=== PATIENT | female | born 1960 | race Caucasian/White ===

== ENCOUNTER 2017-02-03 05:36 | Day surgery (SDC) | payer OTHER ==
[2017-02-02 13:46] LABS: HEMATOCRIT 42.8 % (36.0-48.0); HEMOGLOBIN 13.7 g/dL (12-16); MCH 31.6 pg (26.0-34.0); MCV 98.6 fL (80.0-100.0); MEAN PLATELET VOLUME 10.2 fL (7.4-10.4); RBC 4.34 10x6/uL (4.00-5.40)
[2017-02-02 13:58] LABS: CALC OSMOLALITY 281 mosm/kg (275-300); CALCIUM 8.9 mg/dL (8.5-10.1); CARBON DIOXIDE 29.3 mmol/L (21.0-32.0); CHLORIDE - SERUM 102 mmol/L (98-107); CREATININE - SERUM 0.8 mg/dL (0.6-1.3); POTASSIUM - SERUM 4.1 mmol/L (3.5-5.1); SODIUM 138 mmol/L (136-145); UREA NITROGEN 9 mg/dL (7-18); eGFR NON AFRICAN AMERICAN 79 mL/min (90-120)
[2017-02-02 13:59] LABS: APTT 31.3 SECONDS (22.8-39.4); INR 1.35 (0.85-1.17); PROTIME 16.5 SECONDS (11.6-15.0)
[2017-02-02 14:00] LABS: GLUCOSE 222 mg/dL (74-106)
[~2017-02-03 05:36] MED LIST: COUMADIN3 MG; CYCLOBENZAPRINE10 MG PO; EFFEXOR75 MG PO; GLUCOPHAGE1000 MG PO; GLUCOPHAGE850 MG PO; HYDROCODONE-APA1 TAB PO; JANUVIA50 MG PO; LANOXIN250 MCG PO; OMEPRAZOLE20 M1 PO; PERCOCET 10/3251 TA1 PO; PRAVACHOL20 MG PO; PRILOSEC20 MG PO; RYTHMOL225 MG PO; XARELTO20 MG PO; ZEBETA5 MG PO; ZYRTEC10 M1 PO; ZYRTEC10 MG PO
[2017-02-03] MEDS ORDERED: HYDROCODONE-APA1 TAB PO (08:34)
== END 2017-02-03 10:10 | disposition home or self-care (01) ==
LOC: D.OPS 05:36
PROVIDERS: Anesthesiology
DX: M65.4 Radial styloid tenosynovitis [de Quervain] (principal)

== ENCOUNTER → 2017-04-27 13:42 | Outpatient (CLI) | payer OTHER ==
[2017-02-03 07:05] VITALS: BMI 44.1
== END | disposition home or self-care (01) ==
LOC: D.MRI 13:42
DX: M54.12 Radiculopathy, cervical region (principal)

== ENCOUNTER 2017-09-08 05:18 | Day surgery (SDC) | payer OTHER ==
[2017-09-07 11:53] LABS: HEMATOCRIT 37.9 % (36.0-48.0); HEMOGLOBIN 11.7 g/dL (12-16); MCHC 30.9 g/dL (31.0-37.0); MCV 93.8 fL (80.0-100.0); MEAN PLATELET VOLUME 10.1 fL (7.4-10.4); RBC 4.04 10x6/uL (4.00-5.40); WBC 5.3 10x3/uL (4.8-10.8)
[2017-09-07 12:08] LABS: CALC OSMOLALITY 278 mosm/kg (275-300); CALCIUM 8.7 mg/dL (8.5-10.1); CARBON DIOXIDE 25.7 mmol/L (21.0-32.0); CHLORIDE - SERUM 101 mmol/L (98-107); CREATININE - SERUM 0.7 mg/dL (0.6-1.3); POTASSIUM - SERUM 3.9 mmol/L (3.5-5.1); SODIUM 135 mmol/L (136-145); UREA NITROGEN 6 mg/dL (7-18); eGFR NON AFRICAN AMERICAN > 90 mL/min (90-120)
[2017-09-07 12:12] LABS: GLUCOSE 298 mg/dL (74-106)
[~2017-09-08] VITALS: Ht 172.7 cm; Wt 131.5 kg
[~2017-09-08 05:18] MED LIST changes: +RYTHMOL SR325 MG PO; -RYTHMOL225 MG PO
[2017-09-08 05:57] VITALS: Ht 172.7 cm; Wt 131.5 kg
[2017-09-08] MEDS ORDERED: PERCOCET 5-3251 TAB PO (07:54)
[2017-09-08] MEDS ORDERED: DURICEF500 MG PO (08:02)
--- NOTE | 2017-09-08 08:08 | NUR ---
PRE OP O2 SAT 94%
--- NOTE | 2017-09-08 08:14 | NUR ---
DR ROWE CONSULTED ABOUT LOW O2 SAT AND ORDERED UPDRAFT IN RECOVERY
--- NOTE | 2017-09-08 08:23 | NUR ---
DR ROWE NOW AT BEDSIDE ASCULTATING THE PATIENT AND ASSESING THE BREATHING AND O2 SAT
--- NOTE | 2017-09-08 09:40 | NUR ---
IV DC WITH CATHER TIP INTACT
--- NOTE | 2017-09-08 14:59 | OP ---
PATIENT NAME: ALAYNA NIETO MEDICAL RECORD: [id number] :62 LOCATION:[facility] ADMISSION DATE: SURGEON: DEA PATIÑO DO DATE OF OPERATION: 09/08/2017 PROCEDURE PERFORMED: Left de Quervain's release. PREOPERATIVE DIAGNOSIS: Left de Quervain's tenosynovitis, also I believe as a radial styloid tenosynovitis. POSTOPERATIVE DIAGNOSIS: Left de Quervain's tenosynovitis, also I believe as a radial styloid tenosynovitis. INDICATIONS: Ms. Nieto is a 57-year-old right hand dominant female who presented to my office with left wrist pain. She had similar symptoms in the past on the right when she had tried injections and ended up getting a de Quervain's release on the right. She said that she wanted the same thing done on the left. She said that she tried injections in the past and it did not work. Once this was communicated with me, we decided to consent her for the surgery. She was informed of the risks and benefits. DESCRIPTION OF PROCEDURE: The patient was taken to the operative suite, laid in supine position and given 3 grams Ancef, intubated, given general anesthetic and then the left arm was prepped and draped in sterile fashion. Timeout was performed, everyone was in agreement of correct side, site and patient. Once this was done, a blue towel was used to wrap in the palm and an Esmarch was used to exsanguinate the left upper extremity, tourniquet was inflated to 250 mmHg for 11 minutes total. Once the tourniquet was inflated, incision was made just over the radial styloid and careful dissection was made down to the first dorsal compartment. When this was encountered, there was abundance of fluid in the compartment itself indicating a severe de Quervain's tenosynovitis. Partial synovectomy was done just proximal to the release site of the sheath. Once this was done, the sheath was encountered and it was divided on the dorsal side. The APL was completely released and a synovectomy was performed as well. The separate tendon sheath was then encountered of the EPB tendon and this was released as well. The EPB was released completely as well and any remaining synovitis was taken out over the tendons. The tendons were pulled up through the incision to ensure they glided easily. Once this was done, pressure was held on the wound. Tourniquet was let down and then 5mL of 0.5% Marcaine with epinephrine were injected into the site and the incision itself was then closed with 5-0 Monocryl in inverted interrupted fashion and Steri-Strips were placed over the incision site. Adaptic, 4 x 4s, Kerlix, and Coban was lightly wrapped over the incision. The patient was awakened and taken to recovery in stable condition. Tourniquet was let down. Blood loss was minimal. COMPLICATIONS: None. TRANSINT:[id number] Voice Confirmation ID: [id number] DOCUMENT ID: [id number] OPERATIVE REPORT [id number] ALAYNA NIETO MICHAEL D, DO at 1459 CC: [id number] DICTATION DATE: 09/08/17 0759 OFFICE CLERK: 09/08/17 1143 [facility] 09/08/[address] [address]
== END 2017-09-08 09:55 | disposition home or self-care (01) ==
LOC: D.OPS 05:18 → D.PAN 07:30 → D.OPS 07:30
PROVIDERS: Anesthesiology
DX: M65.4 Radial styloid tenosynovitis [de Quervain] (principal); Z87.891 Personal history of nicotine dependence; E11.9 Type 2 diabetes mellitus without complications; G47.30 Sleep apnea, unspecified; K21.9 Gastro-esophageal reflux disease without esophagitis; E66.9 Obesity, unspecified; Z01.812 Encounter for preprocedural laboratory examination

== ENCOUNTER → 2017-11-06 11:16 | Outpatient (CLI) | payer OTHER ==
[2017-09-08 05:57] VITALS: BMI 44.1
[~2017-11-06 11:16] MED LIST changes: +DURICEF500 MG PO; +PERCOCET 5-3251 TAB PO
[2017-11-06 18:04] LABS: BASOPHILS 0.2 % (0-2); EOSINOPHILS 1.5 % (0-7); HEMATOCRIT 36.9 % (36.0-48.0); HEMOGLOBIN 11.7 g/dL (12-16); IMMATURE GRANULOCYTES 0.2 % (0-5); LYMPHOCYTES 42.3 % (15-50); MCH 30.2 pg (26.0-34.0); MCHC 31.7 g/dL (31.0-37.0); MCV 95.1 fL (80.0-100.0); MEAN PLATELET VOLUME 10.5 fL (7.4-10.4); MONOCYTES 5.9 % (2-11); NEUTROPHILS 49.9 % (40-80); PLATELET COUNT 116 10x3/uL (130-400); RBC 3.88 10x6/uL (4.00-5.40); RDW 14.3 % (11.5-14.5); WBC 5.3 10x3/uL (4.8-10.8)
[2017-11-06 19:25] LABS: ERYTHROCYTE SEDIMENTATION RATE 30 mm/hr (0-30)
== END | disposition home or self-care (01) ==
LOC: D.LABREF 11:16
PROVIDERS: Orthopaedic Surgery
DX: M25.561 Pain in right knee (principal)

== ENCOUNTER → 2017-11-23 11:58 | Outpatient (CLI) | payer OTHER ==
[2017-09-08 05:57] VITALS: BMI 44.1
== END | disposition home or self-care (01) ==
LOC: D.NM 10:15
DX: M25.561 Pain in right knee (principal)

== ENCOUNTER 2018-01-17 05:00 | Day surgery (SDC) | payer OTHER ==
[2018-01-16 09:34] LABS: CALC OSMOLALITY 283 mosm/kg (275-300); CALCIUM 8.7 mg/dL (8.5-10.1); CARBON DIOXIDE 28.1 mmol/L (21.0-32.0); CHLORIDE - SERUM 102 mmol/L (98-107); CREATININE - SERUM 0.7 mg/dL (0.6-1.3); POTASSIUM - SERUM 4.5 mmol/L (3.5-5.1); SODIUM 139 mmol/L (136-145); UREA NITROGEN 9 mg/dL (7-18); eGFR NON AFRICAN AMERICAN > 90 mL/min (90-120)
[2018-01-16 09:35] LABS: GLUCOSE 217 mg/dL (74-106)
[2018-01-16 09:40] LABS: HEMATOCRIT 37.8 % (36.0-48.0); HEMOGLOBIN 11.9 g/dL (12-16); MCH 29.2 pg (26.0-34.0); MCHC 31.5 g/dL (31.0-37.0); MCV 92.6 fL (80.0-100.0); MEAN PLATELET VOLUME 9.6 fL (7.4-10.4); RBC 4.08 10x6/uL (4.00-5.40); RDW 13.3 % (11.5-14.5); WBC 6.2 10x3/uL (4.8-10.8)
[~2018-01-17] VITALS: Ht 175.3 cm; Wt 122.5 kg
--- NOTE | ~2018-01-17 | OP ---
PATIENT NAME: ALAYNA BUENO MEDICAL RECORD: [id number] :62 [facility] DATE: SURGEON: HEIDI MANRIQUEZ DPM DATE OF OPERATION: 01/17/2018 PREOPERATIVE DIAGNOSES: 1. Posterior calcaneal spur, right foot with intratendinous calcifications. 2. Disruption of the Achilles tendon at its insertion. POSTOPERATIVE DIAGNOSES: 1. Posterior calcaneal spur, right foot with intratendinous calcifications. 2. Disruption of the Achilles tendon at its insertion. PROCEDURES: 1. Gastroc recession, right leg. 2. Calcaneal spur removal, right foot with resection of intratendinous calcifications. 3. Achilles tendon repair, right foot. ANESTHESIA: Preoperative popliteal block per the anesthesia department. HEMOSTASIS: Right thigh tourniquet at 350 mmHg. PREOPERATIVE DETAILS: The patient was taken to the operating room and following induction of general anesthesia, was placed on the operating table in a prone position. The right extremity was then prepped and draped in usual aseptic technique followed by exsanguination of extremity and inflation of tourniquet. PROCEDURE #1: Gastroc recession, right leg: A 15-blade was used to create a 4-cm linear incision over the posterior aspect of the right leg overlying the gastroc aponeurosis. The incision was deepened down through subcutaneous tissue being sure to avoid the sural nerve and vein. The dissection was carried down to the peritenon, where a linear incision was made in the peritenon and it was freed from posterior aspect of the aponeurosis. A 15 blade was used with the foot in dorsiflexion to make a cut through the aponeurosis allowing adequate dorsiflexion of the ankle. The wound was flushed and the skin was closed with skin chelly. PROCEDURE #2: Calcaneal spur resection, right foot with removal of intratendinous calcifications: Incision was made over the posterior medial aspect of the right heel extending down to the peritenon. Once the peritenon was visualized, it was incised freeing the Achilles tendon from the peritenon, exposing the insertion. At this time, the Achilles tendon was noted to be disrupted due to the fact that there was significant intratendinous calcifications and spurring in the posterior heel. A 15-blade was used to free the Achilles tendon. At this time, intratendinous calcifications of the Achilles tendons, which were extensive, approximately 2 cm in length up the Achilles tendon, they were resected sharply with a scalpel and dissected out measuring approximately 2 cm x 2 cm. A sagittal saw was then used to resect the spurring on the posterior aspect of the calcaneus. All rough areas were smoothed with a bone rasp. Wound was flushed. PROCEDURE #3: Achilles tendon repair, right foot: Utilizing the suture bridge technique, 4 small drill holes were made with tendon anchors placed in the calcaneus with FiberWire coming up through the anchors and securing the Achilles OPERATIVE REPORT [id number] ALAYNA BUENO L tendon down to the calcaneus in a very rigid fixation technique. Following the fixation, the ankle was placed in dorsiflexion noting excellent rigid internal fixation of the Achilles tendon. The wound was flushed. The peritenon and deep tissue reapproximated with 2-0 Vicryl followed by closure of the subcutaneous tissue with 4-0 Rapide and the skin was closed with 4-0 Rapide in a subcuticular technique, followed by Dermabond, Adaptic, 4 x 4, and Conform were used to dress the wounds, followed by application of a modified Amanda compression dressing. Tourniquet was deflated. POSTOPERATIVE DETAILS: The patient tolerated the procedures well and left the OR with vital signs stable and vascular status at preoperative levels. The patient was transported to recovery per anesthesia in stable condition. TRANSINT:[id number] Voice Confirmation ID: [id number] DOCUMENT ID: [id number] HEIDI MANRIQUEZ DPM at 0926 CC: [id number] DICTATION DATE: 01/17/18 0842 FINANCIAL ACCOUNTING ANALYST: 01/17/[address] [facility] [place], [place] 01/17/18 [facility] [address] [id number]
[~2018-01-17 05:00] MED LIST changes: +EFFEXOR XR75 MG PO
[2018-01-17] MEDS ORDERED: XARELTO20 MG PO (05:18)
[2018-01-17 05:36] VITALS: BP 114/67; Ht 175.3 cm; Wt 122.5 kg
== END 2018-01-17 11:15 | disposition home or self-care (01) ==
LOC: D.OPS 05:00 → D.PAN 07:00 → D.OPS 07:00
PROVIDERS: Anesthesiology
DX: M77.31 Calcaneal spur, right foot (principal); S86.011A Strain of right Achilles tendon, initial encounter; X58.XXXA Exposure to other specified factors, initial encounter; M65.871 Other synovitis and tenosynovitis, right ankle and foot; Z01.812 Encounter for preprocedural laboratory examination